=== PATIENT | male | born 1960 | race Caucasian/White ===

== ENCOUNTER → 2019-11-03 14:32 | Outpatient (CLI) | payer OTHER, SELFPAY ==
--- NOTE | 2019-11-03 | DI.RAD.S_ITS ---
PROCEDURE: XR RIBS LT 2V INDICATIONS: Left rib pain S/P fall TECHNIQUE: 3 views of the left ribs were acquired. COMPARISON: None. FINDINGS: Surgical changes and devices: None. Bones and chest wall: No dislocations. No suspicious bony lesions. Overlying soft tissues appear unremarkable. There is a slightly angulated left lateral 9th rib fracture, without associated pneumothorax Lungs and pleura: The visualized lung appears clear. No pleural effusions or pneumothorax are visible. IMPRESSION: Source of left-sided pain is referable to the left lateral 9th rib fracture that appears acute or subacute. No trauma-induced pneumothorax. Dictated by: Mina Quigley M.D. on 11/03/2019 at 15:43 Approved by: Mina Quigley M.D. on 11/03/2019 at 15:45
== END ==
PROVIDERS: Family Provider Family Medicine; PCP Student in an Organized Health Care Education/Training Program; Referring Provider Student in an Organized Health Care Education/Training Program; Visit Provider Student in an Organized Health Care Education/Training Program
DX: R07.81 Pleurodynia (principal); S22.32XA Fracture of one rib, left side, initial encounter for closed fracture; W19.XXXA Unspecified fall, initial encounter
CPT/HCPCS: 71100

== ENCOUNTER → 2020-09-30 14:45 | Outpatient (CLI) | payer OTHER, SELFPAY ==
[2020-09-30 15:39] LABS: BUN Creatinine Ratio 9.9 (6-22); Blood Urea Nitrogen 9 mg/dL (9-20); Estimated Glomerular Filt Rate > 60.0 mL/min (>60)
== END ==
PROVIDERS: PCP Family Medicine; Referring Provider Physician Assistant Medical; Visit Provider Physician Assistant Medical
DX: R31.29 Other microscopic hematuria (principal)
CPT/HCPCS: 36415; 82565; 84520

== ENCOUNTER → 2020-10-05 12:29 | Outpatient (CLI) | payer OTHER, SELFPAY ==
--- NOTE | 2020-10-05 12:32 | DI.CT.S_ITS ---
PROCEDURE: CT ABDOMEN PELVIS WO/W CON INDICATIONS: Other microscopic hematuria TECHNIQUE: Optional 5 mm thick noncontrast images acquired from the diaphragm to the symphysis pubis. After the administration of intravenous contrast, 5 mm thick images acquired from the diaphragm to the symphysis pubis after a 10-minute delay. 2 mm thick coronal and sagittal reformats were then performed of the kidneys and ureters. For radiation dose reduction, the following was used: automated exposure control, adjustment of mA and/or kV according to patient size. COMPARISON: [facility], CT, IVP (ABD & PEL WWO CONTRAST), 06/27/2017, 9:55. FINDINGS: Image quality: Excellent. Lung bases: There is a 7 mm nodule in the right lower lobe. Heart size is normal. Small hiatal hernia. Urinary system: Both kidneys are normal in size, without hydronephrosis or nephrolithiasis on pre-contrast images. No perinephric fat stranding. There is normal bilateral renal enhancement. Renal calyces appear normal in morphology when filled with contrast. Opacified portions of both ureters demonstrate normal caliber. Bladder wall thickness is normal. No calcified bladder stones. Prostate is enlarged. There is nodularity in the bladder base, slightly more pronounced on the left side, most likely related to enlarged prostate extrusion into the bladder. The appearance is similar on 06/27/2017. Other solid organs: There is a 1 cm low-density nodule in the left hepatic lobe, most likely a cyst. Liver is normal in size and enhancement. Gallbladder contains a gallstone. Biliary system is non dilated. Pancreas enhances normally. Spleen is normal in size and enhancement. Mild adrenal thickening and nodularity. Peritoneum and bowel: Bowel loops demonstrate normal wall thickness and caliber. A few colonic diverticula. No CT findings to suggest acute diverticulitis. No free fluid or air. Nodes and vessels: No retroperitoneal or mesenteric adenopathy by size criteria. Aorta and inferior vena cava are normal in size. Abdominal wall: No ventral hernias. Pelvis: No pathologic free pelvic fluid. No inguinal hernias or adenopathy. Bones: There is a sclerotic focus in the left sacrum, probably a bone island. No vertebral body compression fractures. IMPRESSION: 1. A cause for micro hematuria is not definitively identified. Enlarged prostate. There is protrusion of prostate into the bladder base which appears nodular. The appearance, however, is similar when compared to 06/27/2017. Uroepithelial neoplasm is unlikely not definitively excluded. If clinically indicated, cystoscopy is suggested. 2. Mild prostatomegaly. 3. Mild diverticulosis without diverticulitis. 4. Cholelithiasis. 5. A 7 mm noncalcified nodule in the right lower lobe. A Chest CT is suggested for follow-up evaluation in 3-month. Dictated by: Jessica Spencer M.D. on 10/05/2020 at 16:41 Approved by: Jessica Spencer M.D. on 10/05/2020 at 16:51
== END ==
PROVIDERS: PCP Family Medicine; Referring Provider Urology; Visit Provider Urology
DX: R31.29 Other microscopic hematuria (principal); R91.1 Solitary pulmonary nodule; K21.9 Gastro-esophageal reflux disease without esophagitis; N40.0 Benign prostatic hyperplasia without lower urinary tract symptoms; K57.90 Diverticulosis of intestine, part unspecified, without perforation or abscess without bleeding; K80.20 Calculus of gallbladder without cholecystitis without obstruction
CPT/HCPCS: 74178

== ENCOUNTER → 2023-12-02 09:15 | Outpatient (CLI) | payer OTHER, SELFPAY ==
--- NOTE | 2023-12-02 09:17 | DI.MRI.S_ITS ---
PROCEDURE: MR HEAD/BRAIN WO/W CON INDICATIONS: RECURRENT FALL / HEMIPARESIS TECHNIQUE: Noncontrast axial T1 spin echo, axial T2 fast spin echo, sagittal and axial FLAIR, coronal T2 fast spin echo, axial gradient echo, axial diffusion and ADC through the brain. After the administration of contrast, axial and coronal and sagittal T1 spin echo with fat saturation through the brain. COMPARISON: None. FINDINGS: Image quality: Excellent. CSF spaces: Basal cisterns are patent. No extra-axial fluid collections. Ventricles are normal in size and shape. Brain: No midline shift. No intracranial bleeds or masses. No abnormal intracranial enhancement. There is cerebral volume loss for age. There is periventricular white matter chronic small vessel ischemic change. The brainstem appears normal. Diffusion-weighted images demonstrate no acute infarct. No chronic ischemic insults. Normal intravascular flow voids are present. Skull and face: Calvarial marrow is normal in signal. Orbits appear normal. Sinuses: Sinuses and mastoids appear clear. IMPRESSION: 1. No cause for patient's symptoms identified. No acute or subacute infarct. No acute intracranial abnormalities. No abnormal intracranial enhancement. 2. Age-related global volume loss and chronic microvascular ischemic changes. Dictated by: Dago Rodriguez M.D. on 12/03/2023 at 9:21 Approved by: Dago Rodriguez M.D. on 12/03/2023 at 9:24
== END ==
LOC: MRI 09:16
PROVIDERS: PCP Family Medicine; Referring Provider Family Medicine; Visit Provider Family Medicine
DX: R29.6 Repeated falls (principal); G81.94 Hemiplegia, unspecified affecting left nondominant side
CPT/HCPCS: 70553; A9579

== ENCOUNTER → 2024-01-14 11:37 | Outpatient (CLI) | payer OTHER, SELFPAY ==
--- NOTE | 2024-01-14 11:38 | DI.CT.S_ITS ---
PROCEDURE: CT LUNG LOW DOSE SCREENING INDICATIONS: LOW DOSE SCREENING TECHNIQUE: Noncontrast 2.0-2.5 mm thick sections acquired from the pulmonary apices to the posterior costophrenic angles. 7 mm thick axial MIP, and 5 mm coronal and sagittal reformats were then acquired. For radiation dose reduction, the following was used: automated exposure control, adjustment of mA and/or kV according to patient size. COMPARISON: None. FINDINGS: Image quality: Diagnostic. Lower Neck: No enlarged lymph nodes. Thyroid: No thyroid nodules which require sonographic follow up, per consensus guidelines. Axillae: No enlarged lymph nodes. Chest Wall: Unremarkable. Bones: Unremarkable. Lungs and Pleura: No pneumothorax or pleural effusions. No consolidation. A few scattered pulmonary nodules with the largest measuring 4 mm in the right lower lobe (3/62, MIP image 91). Heart: Heart size is normal. No pericardial effusion. Thoracic Vessels: The aorta and pulmonary arteries demonstrate normal size. Mediastinum and Jazmine: No enlarged lymph nodes. Esophagus: No wall thickening. No hiatal hernia. Upper Abdomen: Visualized upper abdomen solid organs and bowel loops appear normal. IMPRESSION: Scattered pulmonary nodules with the largest measuring of 4 mem in the right lower lobe. LUNG-RADS 2; continued annual screening, if eligible. Clinically Significant Non-pulmonary Findings: None. Approved by: Afua Puentes M.D.,Ph.D. on 01/14/2024 at 23:56
== END ==
PROVIDERS: PCP Family Medicine; Referring Provider Internal Medicine Hematology & Oncology; Visit Provider Internal Medicine Hematology & Oncology
DX: F17.210 Nicotine dependence, cigarettes, uncomplicated (principal); Z12.2 Encounter for screening for malignant neoplasm of respiratory organs; R91.8 Other nonspecific abnormal finding of lung field
CPT/HCPCS: 71271

== ENCOUNTER → 2024-05-12 10:56 | Outpatient (CLI) | payer OTHER, MEDICAID, SELFPAY ==
--- NOTE | 2024-05-12 10:59 | DI.RAD.S_ITS ---
PROCEDURE: XR LUMBAR SPINE MIN 4V INDICATIONS: BACK PAIN TECHNIQUE: 5 views of the lumbar spine were acquired, including bilateral oblique views. COMPARISON: None. FINDINGS: Bones: Five nonrib-bearing vertebrae are present. Trace retrolisthesis L5 on S1. Mild disc height loss at most levels. Mild L3-4 anterior endplate spur formation. Minor facet sclerosis and hypertrophy bilaterally at L5-S1.. No vertebral body compression fractures. No suspicious bony lesions. Soft tissues: Overlying bowel gas pattern is normal. No suspicious soft tissue calcifications. Oblique images: No pars defects. IMPRESSION: Mild degenerative changes predominantly in the lower lumbar spine. Dictated by: Denisa Baumann M.D. on 05/15/2024 at 17:51 Approved by: Denisa Baumann M.D. on 05/15/2024 at 17:52
== END ==
PROVIDERS: PCP Family Medicine; Referring Provider Physical Medicine & Rehabilitation; Visit Provider Physical Medicine & Rehabilitation
DX: M47.816 Spondylosis without myelopathy or radiculopathy, lumbar region (principal); M54.9 Dorsalgia, unspecified; S06.9X9S Unspecified intracranial injury with loss of consciousness of unspecified duration, sequela; F43.25 Adjustment disorder with mixed disturbance of emotions and conduct; R29.6 Repeated falls
CPT/HCPCS: 72110; 99214

== ENCOUNTER 2024-08-25 11:07 | Emergency (ER) | payer OTHER, MEDICAID, SELFPAY ==
[2024-08-25 11:11] VITALS: BP 171/92; PULSE 85; RESP 14; TEMP 36.3; O2SAT 98; BMI 26.6
[2024-08-25 11:40] LABS: Urine Volume 10mL (spun)
[2024-08-25 11:41] LABS: Bacteria Urine None Seen; Culture Indicated Urine Cult Not Indicated; RBC Urine None Seen (0-5/HPF); Squamous Epithelial Cell Urine None Seen (0-5/HPF); WBC Urine None Seen (0-5/HPF)
--- NOTE | 2024-08-25 14:59 | ED_ITS ---
HPI - Male Genitourinary General Chief complaint: Urogenital-Male Stated complaint: Can't Urinate for 2 day on and off Time Seen by Provider: 08/25/24 14:12 Source: patient Mode of arrival: Ambulatory History of Present Illness HPI Narrative: 63-year-old male history of enlarged prostate, occasional UTI, presents to the emergency department for evaluation of several days of urinary frequency and urgency and dysuria. Denies fever or significant abdominal or flank pain. Reports he has had symptoms in the past similar to this 1 was diagnosed with UTI. Last UTI was at least greater than 1 year ago. He has not established with Urology but has been referred to 1 by his PCP. Denies testicular pain or swelling. ROS negative except as stated in HPI Related Data Home Medications Medication Instructions Recorded Confirmed ascorbate calcium (vitamin C) 500 500 mg PO DAILY 03/09/19 05/12/24 mg tablet acetaminophen 500 mg tablet 500 mg PO Q6H PRN 05/12/24 05/12/24 (Tylenol Extra Strength) atorvastatin 10 mg tablet 10 mg PO DAILY 05/12/24 07/27/24 mirabegron 50 mg tablet,extended 50 mg PO DAILY 05/12/24 07/27/24 release 24 hr (Myrbetriq) quetiapine 25 mg tablet 25 mg PO BEDTIME 05/12/24 07/27/24 tamsulosin 0.4 mg capsule 0.4 mg PO DAILY 05/12/24 07/27/24 tolterodine 4 mg capsule,extended 4 mg PO DAILY 05/12/24 07/27/24 release 24 hr cyanocobalamin (vitamin B-12) 50 50 mcg PO DAILY 07/27/24 07/27/24 mcg tablet Allergies Allergy/AdvReac Type Severity Reaction Status Date / Time diltiazem [DILTIAZEM] Allergy Severe HIVES Verified 08/25/24 11:11 PROXIMAL FROM IV SITE aspirin [ASPIRIN] Allergy Mild Verified 08/25/24 11:11 codeine [CODEINE] Allergy Mild Verified 08/25/24 11:11 phenytoin [PHENYTOIN] Allergy Mild Verified 08/25/24 11:11 hydromorphone Allergy Unknown Verified 08/25/24 11:11 Patient History Medical History Falls frequently Social History Smoking Status: Current every day smoker Smoking Status: Current every day smoker Exam Initial Vital Signs Initial Vital Signs: Vital Signs Temperature 97.3 F L 08/25/24 11:11 Pulse Rate 85 08/25/24 11:11 Respiratory Rate 14 08/25/24 11:11 Blood Pressure 171/92 H 08/25/24 11:11 Pulse Oximetry 98 08/25/24 11:11 Oxygen Delivery Method Room Air 08/25/24 11:11 Review of systems negative except as stated in HPI Constitutional: Well appearing elderly gentleman sitting in the chair, no acute distress Head: NCAT Cardiovascular: Normal rate, appears well-perfused Pulmonary: no respiratory distress Abdominal: soft, non-tender, no CVAT Skin: warm and dry, no diaphoresis Neurological: Alert and oriented x3 Course Orders Ordered: ED Orders 08/25/24 11:14 Urine Culture Stat Urine Microscopic Stat 08/25/24 15:23 BMP [Basic Metabolic Panel] Stat Vital Signs Vital signs: Vital Signs - 8 hr 08/25/24 11:11 08/25/24 15:16 Temperature 97.3 F L Pulse Rate 85 94 H Respiratory Rate 14 Blood Pressure 171/92 H 160/94 H Pulse Oximetry 98 97 Oxygen Delivery Method Room Air MDM - Male Genitourinary Lab Data 08/25/24 15:23 Labs: Lab Results 08/25/24 08/25/24 Range/Units 11:14 15:23 Sodium 140 (137-145) mmol/L Potassium 4.0 (3.4-5.1) mmol/L Chloride 107 (98-107) mmol/L Carbon Dioxide 24 (22-32) mmol/L BUN 15 (9-20) mg/dL Creatinine 0.89 (0.66-1.25) mg/dL Estimated GFR > 60 (>60) mL/min BUN/Creatinine Ratio 16.9 (6-22) Glucose 102 H (70-99) mg/dL Calcium 9.5 (8.4-10.2) mg/dL Urine RBC None seen (0-5/HPF) Urine WBC None seen (0-5/HPF) Ur Squamous Epith Cells None seen (0-5/HPF) Urine Bacteria None seen (None) Ur Culture Indicated? Cult not indicated Vol Urine Centrifuged 10ml (spun) Urine Dip Bedside Urine Glucose Negative Bedside Urine Bilirubin - Negative Bedside Urine Ketone - Negative Urine Specific [place] 1.015 Bedside Urine Occult Blood +/- Bedside Urine pH 6.0 Bedside Urine Protein - Negative Bedside Urine Urobilinogen - Negative Bedside Urine Nitrite - Negative Bedside Urine Leukocytes - Negative Esterase MDM Narrative Medical decision making narrative: 63-year-old male history of enlarged prostate and occasional UTIs here with several days of urinary frequency urgency and dysuria. No abdominal discomfort. Denies testicular pain or swelling, penile discharge and is not sexually active. Vital signs here pertinent for elevated blood pressure. Urinalysis there has no RBCs no WBCs no bacteria no squamous epithelial cells. Bladder scan shows less than 20 cc of urine. On recheck guardian does now recall was previously prescribed Myrbetriq but was discontinued by PCP for unknown reason. I see this on his prior medication list along with Flomax and tolterodine Today no apparent evidence of infection or urinary retention. Symptoms may be related to known history of overactive bladder or enlarged prostate. Counseled patient and family regarding various possible etiologies and need for Urology follow-up which she has already been referred to. After some shared decision- making patient family and I have decided to defer initiation of any previously prescribed medications. Rather, we will defer to primary care physician and urologist regarding treatment plan. Return precautions discussed and provided prior to discharge Discharge Plan Departure Patient Disposition: Home Clinical Impression: Dysuria Instructions: DI for Dysuria -- Adult Activity Restrictions/Additional Instructions: Ultimately it is not clear what is causing your symptoms. No evidence of kidney dysfunction today or urinary tract infection or urinary retention. Please call your family doctor office in the morning for follow-up appointment and/or discuss whether it would be indicated to restart your Myrbetriq versus other medication while you wait for a urology appointment. Call Dr. Ascencio's office for appointment. Prescriptions: No Action ascorbate calcium (vitamin C) 500 mg tablet 500 mg PO DAILY cyanocobalamin (vitamin B-12) 50 mcg tablet 50 mcg PO DAILY tamsulosin 0.4 mg capsule 0.4 mg PO DAILY quetiapine 25 mg tablet 25 mg PO BEDTIME Patient Comments: [NO ORIGINAL SIG] tolterodine 4 mg capsule,extended release 24hr 4 mg PO DAILY atorvastatin 10 mg tablet 10 mg PO DAILY mirabegron [Myrbetriq] 50 mg tablet extended release 24 hr 50 mg PO DAILY acetaminophen [Tylenol Extra Strength] 500 mg tablet 500 mg PO Q6H PRN Referrals: Joseph Serrano MD [Primary Care Provider] - Augie Rutledge MD, MS [Non-Staff] - (dysuria without infection) Stand Alone Forms: Patient Portal/API/Survey
[2024-08-25 15:16] VITALS: BP 160/94; PULSE 94; O2SAT 97
[2024-08-25 15:42] LABS: BUN Creatinine Ratio 16.9 (6-22); Blood Urea Nitrogen 15 mg/dL (9-20); Calcium 9.5 mg/dL (8.4-10.2); Carbon Dioxide 24 mmol/L (22-32); Chloride 107 mmol/L (98-107); Estimated Glomerular Filt Rate > 60 mL/min (>60); Glucose 102 mg/dL (70-99); HEMOLYSIS < 15 (0-50); Sodium 140 mmol/L (137-145)
== END 2024-08-25 16:14 | disposition home or self-care (01) ==
PROVIDERS: Emergency Medicine; Emergency Provider Student in an Organized Health Care Education/Training Program; PCP Family Medicine
DX: R30.0 Dysuria (principal)
CPT/HCPCS: 36415; 51798; 80048; 81003; 81015; 87086; 99283

== ENCOUNTER → 2024-12-10 21:52 | Outpatient (ROUT) | payer OTHER, MEDICAID, SELFPAY ==
[2024-12-10 22:09] LABS: Appearance Urine UA SL CLOUDY; Bilirubin Urine UA NEGATIVE (NEGATIVE); Color Urine UA YELLOW; Glucose Urine UA NEGATIVE (Negative); Ketones Urine UA NEGATIVE (NEGATIVE); Leukocyte Esterase Urine UA NEGATIVE (NEGATIVE); Nitrite Urine UA NEGATIVE (Negative); Occult Blood Urine UA NEGATIVE (Negative); Protein Urine UA NEGATIVE (Negative); Specific Gravity Urine UA 1.010 (1.000-1.035); Urobilinogen Urine UA 0.2 E.U./dL (0.2); pH Urine UA 7.0 (4.5-8.0)
[2024-12-10 22:13] LABS: Culture Indicated Urine Cult Not Indicated
== END ==
PROVIDERS: PCP Family Medicine; Visit Provider Registered Nurse
DX: N39.0 Urinary tract infection, site not specified (principal)
CPT/HCPCS: 81001

== ENCOUNTER 2025-01-23 14:44 | Emergency (ER) | payer OTHER, MEDICAID, SELFPAY ==
[2025-01-23 14:42] VITALS: BP 112/87; PULSE 94; RESP 18; TEMP 37.2; O2SAT 94; BMI 27.3
[2025-01-23 15:31] LABS: Culture Indicated Urine Cult Not Indicated
--- NOTE | 2025-01-23 15:41 | ED_ITS ---
HPI - Fall <Matilda Perez PA-C - Last Filed: 01/23/25 17:58> General Chief Complaint: Fall Stated Complaint: Falls x 3 Time Seen by Provider: 01/23/25 15:37 Source: EMS Mode of arrival: EMS History of Present Illness HPI Narrative: Mr. Bui is a pleasant 64-year-old gentleman who lives at [facility] with a past medical history of BPH, traumatic brain injury with left-sided deficits, unsteady gait and frequent falls who presents to the emergency department via EMS due to having 3 reported falls at his facility today. It was reported that with 1 of the falls the patient's right elbow broke a glass panel. Patient does use a cane to ambulate. Patient reports no changes from his baseline, he denies any pain, denies hitting his head, loss of consciousness or neck pain. He does not take blood thinners. However patient does have abrasions by the left eye, the right hand. He reports he only fell once through glass and the ambulance showed up immediately. Denies loss of consciousness, nausea, vomiting. He denies headache, neck pain, chest pain, arm pain, abdominal pain, back pain, leg pain, any pain. Related Data Home Medications ?Medication ?Instructions ?Recorded ?Confirmed ascorbate calcium (vitamin C) 500 500 mg PO DAILY 04/2712/01/24 mg tablet acetaminophen 500 mg tablet 500 mg PO Q6H PRN 05/12/24 12/01/24 (Tylenol Extra Strength) atorvastatin 10 mg tablet 10 mg PO DAILY 05/12/2411/08 mirabegron 50 mg tablet,extended 50 mg PO DAILY 12/01/24 release 24 hr (Myrbetriq) quetiapine 25 mg tablet 25 mg PO BEDTIME 05/12/24 tamsulosin 0.4 mg capsule 0.4 mg PO DAILY 05/12/24 tolterodine 4 mg capsule,extended 4 mg PO DAILY 12/01/24 release 24 hr cyanocobalamin (vitamin B-12) 50 50 mcg PO DAILY 07/2712/01/24 mcg tablet aspirin 81 mg tablet,delayed mg PO 12/01/24 12/01/24 release Previous Rx's ?Medication ?Instructions ?Recorded polyethylene glycol 3350 17 17 g PO TID PRN constipati on #238 09/02/24 gram/dose oral powder (Miralax) grams Allergies Allergy/AdvReac Type Severity Reaction Status Date / Time diltiazem (DILTIAZEM) Allergy Severe HIVES Verified 01/23/25 14:46 PROXIMAL FROM IV SITE haloperidol (From Haldol) Allergy Severe Flushing Verified 01/23/25 14:46 aspirin (ASPIRIN) Allergy Mild Verified 01/23/25 14:46 codeine (CODEINE) Allergy Mild Verified 01/23/25 14:46 phenytoin (PHENYTOIN) Allergy Mild Verified 01/23/25 14:46 hydromorphone Allergy Unknown Verified 01/23/25 14:46 Review of Systems <Matilda Perez PA-C - Last Filed: 01/23/25 17:58> Review of Systems ROS Unobtainable: All systems reviewed & are unremarkable except as noted in HPI and below Patient History <Matilda Perez PA-C - Last Filed: 01/23/25 17:58> Medical History Hx of traumatic brain injury Hx of renal calculi Falls frequently Surgical History Hx of kidney removal Social History marital status: Smoking Status: Current every day smoker alcohol intake: never caffeine: Yes Type(s) of exercise: none Smoking Status: Current every day smoker tobacco type: cigarettes Exam <Matilda Perez PA-C - Last Filed: 01/23/25 17:58> Narrative Exam Narrative: GENERAL: 64 year old patient appears stated age. Well-developed patient, in no acute distress. HEAD: Atraumatic. Normocephalic. EYES: PERRL. Extraocular motions intact. No scleral icterus. No injection or drainage. ENT: Clear ear canals and pearly daniel TMs bilaterally, no hemotympanum or whitman sign. Nose without bleeding, purulent drainage. Throat without erythema, tonsillar hypertrophy or exudate. Airway patent. NECK: Trachea midline. Cervical ROM intact. No midline spinal tenderness. CARDIOVASCULAR: Regular rate and rhythm. RESPIRATORY: ?Nonlabored respirations. ?Speaking in clear, full sentences. ?Clear to auscultation. Breath sounds equal bilaterally. No wheezes, rales, or rhonchi. ? GASTROINTESTINAL: Abdomen soft, non-tender, nondistended. EXTREMITIES: No bony tenderness palpation of bilateral clavicles, shoulders, elbows, wrists, hands, hips, knees, ankles. BACK: Nontender without deformity or crepitance. No flank tenderness. NEURO: AOx3. ?Clear speech. Does have some chronic left-sided deficits due to prior TBI. Ambulates very unsteadily with cane, ambulates well with a walker. SKIN: 2 superficial abrasions on the dorsal aspect of the right hand. 2 mm linear laceration just lateral to the left eye. Initial Vital Signs Initial Vital Signs: Vital Signs Temperature 99.0 F 01/23/25 14:42 Pulse Rate 94 H 01/23/25 14:42 Respiratory Rate 18 01/23/25 14:42 Blood Pressure 112/87 01/23/25 14:42 Pulse Oximetry 94 01/23/25 14:42 Oxygen Delivery Method Room Air 01/23/25 14:42 <Christen Neville MD - Last Filed: 01/24/25 00:17> Initial Vital Signs Initial Vital Signs: Vital Signs Temperature 99.0 F 01/23/25 14:42 Pulse Rate 94 H 01/23/25 14:42 Respiratory Rate 18 01/23/25 14:42 Blood Pressure 112/87 01/23/25 14:42 Pulse Oximetry 94 01/23/25 14:42 Oxygen Delivery Method Room Air 01/23/25 14:42 Procedures <Matilda Perez PA-C - Last Filed: 01/23/25 17:58> Laceration Repair Laceration 1: Site: face Side (If applicable): left Size (cm): 0.2 Description: linear Depth: simple, single layer Skin layer closed with: steri-strips (2) Course <Matilda Perez PA-C - Last Filed: 01/23/25 17:58> Orders Ordered: ED Orders 01/23/25 15:58 CT head/brain wo con Stat Discontinued Medications Bacitracin (Bacitracin Oint 0.9 Gm Pckt) 1 applic TOP NOW ONE Stop: 01/23/25 15:59 Last Admin: 01/23/25 16:19 Dose: 1 applic Documented By: SB Vital Signs Vital signs: Vital Signs - 8 hr 01/23/25 17:10 Temperature 97.8 F Pulse Rate 77 Respiratory Rate 16 Blood Pressure 133/87 Pulse Oximetry 98 Oxygen Delivery Method Room Air <Christen Neville MD - Last Filed: 01/24/25 00:17> Orders Ordered: ED Orders 01/23/25 15:58 CT head/brain wo con Stat Discontinued Medications Bacitracin (Bacitracin Oint 0.9 Gm Pckt) 1 applic TOP NOW ONE Stop: 01/23/25 15:59 Last Admin: 01/23/25 16:19 Dose: 1 applic Documented By: SB Vital Signs Vital signs: Vital Signs - 8 hr 01/23/25 17:10 Temperature 97.8 F Pulse Rate 77 Respiratory Rate 16 Blood Pressure 133/87 Pulse Oximetry 98 Oxygen Delivery Method Room Air MDM - Fall <Matilda Perez PA-C - Last Filed: 01/23/25 17:58> Medical Records Attestation: I reviewed the patient's medical records. Lab Data Labs: Lab Results 01/23/25 Range/Units 14:55 Urine RBC None seen (0-5/HPF) Urine WBC None seen (0-5/HPF) Ur Squamous Epith Cells None seen (0-5/HPF) Urine Bacteria Occasional (0-1) (None) Ur Culture Indicated? Cult not indicated Vol Urine Centrifuged 10ml (spun) Urine Dip Bedside Urine Glucose Negative Bedside Urine Bilirubin - Negative Bedside Urine Ketone - Negative Urine Specific [place] 1.025 Bedside Urine Occult Blood + Bedside Urine pH 6.0 Bedside Urine Protein - Negative Bedside Urine Urobilinogen +/- 1mg Bedside Urine Nitrite - Negative Bedside Urine Leukocytes - Negative Esterase Imaging Data CT scan - head: Radiologist's Impression: PROCEDURE: CT HEAD/BRAIN WO CON INDICATIONS: freq falls; hit L head; hx TBI TECHNIQUE: Noncontrast 4.5 mm thick angled axial sections acquired from the foramen magnum to the vertex, with coronal and sagittal reformats. For radiation dose reduction, the following was used: automated exposure control, adjustment of mA and/or kV according to patient size. COMPARISON: [facility], CT, HEAD WITHOUT CONTRAST, 09/17/2015, 17:12. FINDINGS: Image quality: Diagnostic. CSF spaces: Basal cisterns are patent. No extra-axial fluid collections. The ventricles are symmetric in size and shape. Brain: No intracranial bleeds or mass effect. There is cerebral volume loss, with resultant ventricular and sulcal prominence. There are periventricular and deep white matter chronic small vessel ischemic changes. There is intracranial internal carotid artery atherosclerosis. Skull and face: Calvarium and visualized facial bones appear intact, without suspicious lesions. Sinuses: Visualized sinuses and mastoids are clear. IMPRESSION: No acute intracranial pathology. Dictated by: Jax Reyes M.D. on 01/23/2025 at 16:27 Approved by: Jax Reyes M.D. on 01/23/2025 at 16:28 [facility] Narrative Medical decision making narrative: 64-year-old gentleman who lives at [facility] with a past medical history of BPH, traumatic brain injury with left-sided deficits, unsteady gait and frequent falls who presents to the emergency department via EMS due to having 3 reported falls at his facility today. Differential diagnosis includes but is not limited to superficial abrasion, laceration, foreign body, closed head injury, strain, sprain, fracture, dislocation, etc. On exam patient is in no acute distress, nontoxic appearing, all vital signs within normal limits. He has a very unsteady gait at baseline and has been using a cane. Reports that he had a trip and fall at his facility today causing him to go through a glass panel. He is superficial abrasions on the right hand, very small laceration just lateral to the left eye. He denies any pain. He denies hitting his head however does have an abrasion on his face therefore we will obtain CT head, urinalysis was obtained in triage which is negative for infection. Patient states his Tdap is up-to-date. Wounds on the right hand and the left side of the face where cleansed by myself and nursing staff, no foreign debris or shards of glass present. Bacitracin was applied to his hand, I did use to small Steri-Strips for approximation of small laceration next to his left eye. CT head reveals no acute abnormalities. Patient was provided with a walker, and ambulated with myself and nursing staff and walks with much more steady gait using a walker rather than the cane. Encourage patient to use the walker, keep wounds clean, discussed ER return precautions. Patient verbalized understanding of all information is happy with the plan, he is stable for transfer back to [facility]. <Christen Neville MD - Last Filed: 01/24/25 00:17> Lab Data Labs: Lab Results 01/23/25 Range/Units 14:55 Urine RBC None seen (0-5/HPF) Urine WBC None seen (0-5/HPF) Ur Squamous Epith Cells None seen (0-5/HPF) Urine Bacteria Occasional (0-1) (None) Ur Culture Indicated? Cult not indicated Vol Urine Centrifuged 10ml (spun) Urine Dip Bedside Urine Glucose Negative Bedside Urine Bilirubin - Negative Bedside Urine Ketone - Negative Urine Specific [place] 1.025 Bedside Urine Occult Blood + Bedside Urine pH 6.0 Bedside Urine Protein - Negative Bedside Urine Urobilinogen +/- 1mg Bedside Urine Nitrite - Negative Bedside Urine Leukocytes - Negative Esterase Discharge Plan Departure Patient Disposition: Home Clinical Impression: Fall Qualifiers: Encounter type: initial encounter Qualified Code(s): W19.XXXA - Unspecified fall, initial encounter Abrasion of hand, right Qualifiers: Encounter type: initial encounter Qualified Code(s): S60.511A - Abrasion of right hand, initial encounter Abrasion of face Qualifiers: Encounter type: initial encounter Qualified Code(s): S00.81XA - Abrasion of other part of head, initial encounter Instructions: Exercises to Help Prevent Falls, DI for Laceration Repair-Skin Closure Strips, How to Prevent Falls Activity Restrictions/Additional Instructions: Dear Mr. Bui, Thank you for coming to the emergency department. Today you were evaluated for injuries sustained after a fall. Superficial abrasions on your right hand were cleansed and antibiotic dressing applied. Skin tape was used to close the wound near her left eye. CT scan of your head showed no injuries. Urinalysis revealed no infection. You were provided with a walker to help you be more steady, I am very happy with the way use the walker and I would like you to use this instead of your cane when possible. Please keep your wounds clean. Please return to the ER if you develop fevers, pus draining from the wounds, redness or any other concerns. He is follow up with your primary care doctor. Please follow up with your primary care doctor within the next 2-3 days for ER follow-up. (If you do not have a PCP you can call [phone]. ?to schedule an appointment with an [facility] Primary Care Provider) IF YOU DEVELOP ANY NEW OR WORSENING SYMPTOMS, RETURN TO THE ER! Please read the attached instructions, they highlight more specific treatments and interventions for you at home. Thank you for letting me participate in your care, Matilda Perez PA-C Prescriptions: No Action ascorbate calcium (vitamin C) 500 mg tablet 500 mg PO DAILY polyethylene glycol 3350 [Miralax] 17 gram/dose powder 17 g PO TID PRN (Reason: constipation) Qty: 238 0RF aspirin 81 mg tablet,delayed release (DR/EC) PO cyanocobalamin (vitamin B-12) 50 mcg tablet 50 mcg PO DAILY tamsulosin 0.4 mg capsule 0.4 mg PO DAILY quetiapine 25 mg tablet 25 mg PO BEDTIME Patient Comments: [NO ORIGINAL SIG] tolterodine 4 mg capsule,extended release 24hr 4 mg PO DAILY atorvastatin 10 mg tablet 10 mg PO DAILY mirabegron [Myrbetriq] 50 mg tablet extended release 24 hr 50 mg PO DAILY acetaminophen [Tylenol Extra Strength] 500 mg tablet 500 mg PO Q6H PRN Referrals: Joseph Serrano MD [Primary Care Provider, Family Practice] Stand Alone Forms: Patient Portal/API ED Sign-out <Christen Neville MD - Last Filed: 01/24/25 00:17> [facility]: I was immediately available in the department for consultation throughout this patient's visit. Christen Neville MD
[2025-01-23 15:55] VITALS: BP 116/83; PULSE 81; RESP 18; TEMP 36.7; O2SAT 97
--- NOTE | 2025-01-23 15:58 | DI.CT.S_ITS ---
PROCEDURE: CT HEAD/BRAIN WO CON INDICATIONS: freq falls; hit L head; hx TBI TECHNIQUE: Noncontrast 4.5 mm thick angled axial sections acquired from the foramen magnum to the vertex, with coronal and sagittal reformats. For radiation dose reduction, the following was used: automated exposure control, adjustment of mA and/or kV according to patient size. COMPARISON: [facility], CT, HEAD WITHOUT CONTRAST, 09/17/2015, 17:12. FINDINGS: Image quality: Diagnostic. CSF spaces: Basal cisterns are patent. No extra-axial fluid collections. The ventricles are symmetric in size and shape. Brain: No intracranial bleeds or mass effect. There is cerebral volume loss, with resultant ventricular and sulcal prominence. There are periventricular and deep white matter chronic small vessel ischemic changes. There is intracranial internal carotid artery atherosclerosis. Skull and face: Calvarium and visualized facial bones appear intact, without suspicious lesions. Sinuses: Visualized sinuses and mastoids are clear. IMPRESSION: No acute intracranial pathology. Dictated by: Jax Reyes M.D. on 01/23/2025 at 16:27 Approved by: Jax Reyes M.D. on 01/23/2025 at 16:28
[2025-01-23] MEDS: BACITRACIN OINT 0.9 GM PCKT 1 APPLIC TOP (16:19)
[2025-01-23 17:10] VITALS: BP 133/87; PULSE 77; RESP 16; TEMP 36.6; O2SAT 98
== END 2025-01-23 17:17 | disposition home or self-care (01) ==
PROVIDERS: Emergency Medicine; Emergency Provider Physician Assistant; PCP Family Medicine
DX: S60.511A Abrasion of right hand, initial encounter (principal); S00.81XA Abrasion of other part of head, initial encounter; W19.XXXA Unspecified fall, initial encounter; S09.90XA Unspecified injury of head, initial encounter; R29.6 Repeated falls
CPT/HCPCS: 70450; 81003; 81015; 99283; 99284